=== PATIENT | female | born 1945 | race African-American/Black ===

== ENCOUNTER 2017-01-06 18:05 | Emergency (ER) | payer OTHER ==
[2017-01-06 20:46] VITALS: BP 140/70
== END 2017-01-06 20:46 | disposition home or self-care (01) ==
LOC: ED 18:05
DX: M54.5 Low back pain (principal); E11.9 Type 2 diabetes mellitus without complications; I10 Essential (primary) hypertension; E78.00 Pure hypercholesterolemia, unspecified; Z90.49 Acquired absence of other specified parts of digestive tract; W18.39XA Other fall on same level, initial encounter; Y93.89 Activity, other specified; Y92.89 Other specified places as the place of occurrence of the external cause; Y99.8 Other external cause status
CPT/HCPCS: J1885; Q0162